=== PATIENT | male | born 1955 | race African-American/Black ===

== ENCOUNTER 2020-08-05 16:31 | Emergency (ER) | payer OTHER ==
[~2020-08-05] VITALS: Ht 182.9 cm; Wt 83.9 kg
[2020-08-05 17:21] LABS: ABSOLUTE NEUTROPHILS 3.7 thou/uL (1.4-8.2); BASOPHILS 0.1 % (0.0-2.0); HEMATOCRIT 31.6 % (42.0-52.0); HEMOGLOBIN 10.3 gm/dL (14.0-18.0); LYMPHOCYTES 12.3 % (24.0-44.0); MCH 32.1 pg (26.0-34.0); MCHC 32.5 g/dL (28.0-37.0); MCV 98.8 fL (80.0-100.0); MONOCYTES 9.8 % (1.0-8.0); PLATELET COUNT 239 thou/uL (150-400); POLYS 77.8 % (36.0-66.0); RDW 13.8 % (10.5-14.5); WBC 4.7 thou/uL (4.0-11.0)
[2020-08-05 17:24] LABS: ANION GAP 12 mmol/L (7-16); BUN 13 mg/dL (7-18); CALCIUM 9.4 mg/dL (8.5-10.1); CHLORIDE 102 mmol/L (98-107); CO2 24 mmol/L (21-32); CREATININE 1.4 mg/dL (0.7-1.3); GLUCOSE 184 mg/dL (74-106); POTASSIUM 3.3 mmol/L (3.5-5.1); SODIUM 138 mmol/L (136-145)
[2020-08-05 17:33] LABS: TROPONIN-I <0.06 ng/mL (<0.06)
[2020-08-05 17:48] VITALS: BP 118/77
--- NOTE | 2020-08-06 07:17 | EKG ---
[place] [address] 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 : 1955 Requested By: Lai Ortega Order Number: [id number] MD: Sherif Fried Measurements Intervals [place] Rate: 101 P: 4 WI: 161 QRS: -81 QRSD: 162 T: 16 QT: 419 QTc: 544 Interpretive Statements Sinus tachycardia Ventricular premature complex Probable left atrial enlargement RBBB and LAFB No previous ECG available for comparison Electronically Signed On 08-06-2020 7:16:52 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
== END 2020-08-05 17:48 | disposition home or self-care (01) ==
LOC: ER 16:31
PROVIDERS: Nurse Practitioner
DX: R06.00 Dyspnea, unspecified (principal); Z85.118 Personal history of other malignant neoplasm of bronchus and lung; Z86.718 Personal history of other venous thrombosis and embolism; Z88.0 Allergy status to penicillin